=== PATIENT | female | born 1960 | race Caucasian/White ===

== ENCOUNTER 2018-10-20 06:15 | Day surgery (SDC) | payer BC ==
[~2018-10-20] VITALS: Ht 157.5 cm; Wt 68.0 kg
[2018-10-20] MEDS ORDERED: LIDOCAINE/EPI 1% 1:100000 20 ML VIAL INJ ONE (08:15)
[2018-10-20] MEDS ORDERED: EPINEPHrine 1 MG/ML AMP SUBCUT ONE (08:15)
[2018-10-20] MEDS ORDERED: LR 1,000 ML IV SCH (08:25)
[2018-10-20] MEDS ORDERED: MORPHINE 4 MG/ML INJ. SYRINGE IVP PRN ×3 (08:30)
[2018-10-20] MEDS ORDERED: METOCLOPRAMIDE HCL 10 MG/2 ML VIAL IVP PRN (08:30)
[2018-10-20] MEDS ORDERED: MUPIROCIN 2% TOPICAL OINTMENT 22 GM TP ONE (09:53)
[2018-10-20] MEDS ORDERED: MORPHINE 4 MG/ML INJ. SYRINGE ONE (10:52)
[2018-10-20 11:48] VITALS: BP_SYST 129
== END 2018-10-20 13:24 | disposition home or self-care (01) ==
LOC: SDS 06:15 → SMU 06:15 → EDBD 07:30 → SDS 13:24
PROVIDERS: ATTEND Otolaryngology
DX: J34.2 Deviated nasal septum (principal); J32.9 Chronic sinusitis, unspecified; J34.89 Other specified disorders of nose and nasal sinuses; Z98.890 Other specified postprocedural states; Z79.899 Other long term (current) drug therapy; Z90.710 Acquired absence of both cervix and uterus; G47.9 Sleep disorder, unspecified; M19.90 Unspecified osteoarthritis, unspecified site
CPT/HCPCS: 30140; 30520; 31240; 31255; 31267; 88305; 88311; J0171; J2270; J7120